=== PATIENT | male | born 1990 | race American Indian/Alaskan Native ===

== ENCOUNTER 2020-12-01 19:52 | Emergency (ER) | payer OTHER ==
[2020-12-01 20:38] VITALS: BP 148/91
[2020-12-01] MEDS ORDERED: KETOROLAC 60 MG/2 ML INJ IM ONE (20:59)
[2020-12-01] MEDS ORDERED: predniSONE 20 MG TAB PO ONE (20:59)
--- NOTE | 2020-12-01 21:32 | Cat Scan Report ---
CT HEAD WITHOUT CONTRAST INDICATION / CLINICAL INFORMATION: neck/head pain s/p direct blow. TECHNIQUE: All CT scans at this location are performed using CT dose reduction for ALARA by means of automated e xposure control. COMPARISON: None available. FINDINGS: HEMORRHAGE: None. EXTRA-AXIAL SPACES: Normal in size and morphology for the patient's age. VENTRICULAR SYSTEM: Normal in size and morphology for the patient's age. CEREBRAL PARENCHYMA: No significant abnormality. No acute territorial infarct. MIDLINE SHIFT OR HERNIATION: None. CEREBELLUM / BRAINSTEM: No significant abnormality. ORBITS: Normal as visualized. SOFT TISSUES of HEAD: No significant abnormality. CALVARIUM: No significant abnormality. PARANASAL SINUSES / MASTOID AIR CELLS: Polypoid mucosal thickening of the right sphenoid sinus. ADDITIONAL FINDINGS: None. IMPRESSION: 1. No acute intracranial abnormality. Signer Name: Oliver Guillaume MD Signed: 12/01/2020 9:28 PM Workstation Name: [id number]
--- NOTE | 2020-12-01 21:38 | Cat Scan Report ---
CT CERVICAL SPINE WITHOUT CONTRAST INDICATION / CLINICAL INFORMATION: neck/head pain s/p direct blow. TECHNIQUE: Axial CT images of the spine were obtained. Sagittal and coronal reformatted images were produced. Al l CT scans at this location are performed using CT dose reduction for ALARA by means of automated exp osure control. COMPARISON: None available. FINDINGS: Acute Fracture(s) or Subluxation: None. Spinal Degenerative Changes: No significant degenerative changes. Paraspinal soft tissues: No soft tissue swelling or other acute abnormalities. Additional Findings: No significant additional findings. IMPRESSION: 1. No acute findings. Signer Name: Oliver Guillaume MD Signed: 12/01/2020 9:33 PM Workstation Name: [id number]
--- NOTE | 2020-12-01 22:09 | Emergency Department Report ---
ED Neck Pain/Injury HPI - General Chief Complaint: Neck Pain/Injury Stated Complaint: PAIN IN SHOULDER/NECK/CHEST PAIN Time Seen by Provider: 12/01/20 20:57 Mode of arrival: Ambulatory Limitations: No Limitations - History of Present Illness Initial Comments: This is a 30-year-old male nontoxic, well nourished in appearance, no acute signs of distress presents to the ED with c/o of neck pain that started today. Patient stated that he was playing football and got tackled and started to have neck pain and radiates to his head. Patient denies any loss of consciousness. Denies any bladder or bowel instability. Patient denies any urinary symptoms. Denies any fever, chills, nausea, vomiting, headache, stiff neck, chest pain or shortness of breath. Patient denies any numbness or tingling. Patient stated pain is worse with movement and better with immobilization. Denies any visual changes. Patient denies any allergies or significant past medical history. MD Complaint: neck pain -: This afternoon Place: street/outdoors Severity: mild Severity scale (0 -10): 8 Quality: aching Consistency: intermittent Improves With: immobilization Worsens With: movement of neck Context: direct blow Associated Symptoms: headache. denies: fever, numbness, tingling, weakness, vertigo, difficulty walking, swollen glands, difficulty swallowing, nausea, vomiting - Related Data Previous Rx's Medication Instructions Recorded Last Taken Type Cyclobenzaprine [Flexeril] 10 mg PO QHS PRN #10 tablet 12/01/20 Unknown Rx Naproxen 500 mg PO Q12H PRN #12 tablet 12/01/20 Unknown Rx Allergies Allergy/AdvReac Type Severity Reaction Status Date / Time No Known Allergies Allergy Verified 12/01/20 20:29 ED Review of Systems ROS: Stated complaint: PAIN IN SHOULDER/NECK/CHEST PAIN Other details as noted in HPI Comment: All other systems reviewed and negative Constitutional: denies: chills, fever Eyes: denies: eye pain, eye discharge, vision change ENT: denies: ear pain, throat pain Respiratory: denies: cough, shortness of breath, wheezing Cardiovascular: denies: chest pain, palpitations Endocrine: no symptoms reported Gastrointestinal: denies: abdominal pain, nausea, diarrhea Genitourinary: denies: urgency, dysuria Musculoskeletal: denies: back pain, joint swelling, arthralgia Skin: denies: rash, lesions Neurological: headache. denies: weakness, paresthesias Psychiatric: denies: anxiety, depression Hematological/Lymphatic: denies: easy bleeding, easy bruising ED Past Medical Hx - Past Medical History Previous Medical History?: No - Surgical History Past Surgical History?: No - Social History Smoking Status: Never Smoker Substance Use Type: None - Medications Home Medications: Home Medications Medication Instructions Recorded Confirmed Last Taken Type Cyclobenzaprine [Flexeril] 10 mg PO QHS PRN #10 tablet 12/01/20 Unknown Rx Naproxen 500 mg PO Q12H PRN #12 tablet 12/01/20 Unknown Rx ED Physical Exam - General Limitations: No Limitations General appearance: alert, in no apparent distress - Head Head exam: Present: atraumatic, normocephalic - Eye Eye exam: Present: normal appearance, PERRL, EOMI - Neck Neck exam: Present: normal inspection, full ROM. Absent: tenderness, men ingismus, lymphadenopathy - Respiratory Respiratory exam: Present: normal lung sounds bilaterally. Absent: respiratory distress - Cardiovascular Cardiovascular Exam: Present: regular rate - Extremities Exam Extremities exam: Present: normal inspection, full ROM, normal capillary refill. Absent: tenderness, joint swelling - Back Exam Back exam: Present: normal inspection, full ROM, paraspinal tenderness (Cervical paraspinal). Absent: tenderness, CVA tenderness (R), CVA tenderness (L), muscle spasm, vertebral tenderness, rash noted - Neurological Exam Neurological exam: Present: alert, oriented X3, normal gait - Expanded Neurological Exam Expanded Patient oriented to: Present: person, place, time Cranial nerves: EOM's Intact: Normal, Facial Sensation: Normal Cerebellar function: Finger to Nose: Normal Upper motor neuron: Pronator Drift: Normal, Sensory Extinction: Normal Motor strength exam: RUE: 5, LUE: 5, RLE: 5, LLE: 5 Best Eye Response ([place]): (4) open spontaneously Best Motor Response ([place]): (6) obeys commands Best Verbal Response ([place]): (5) oriented [place] Total: 15 - Psychiatric Psychiatric exam: Present: normal affect, normal mood - Skin Skin exam: Present: warm, dry, intact, normal color. Absent: rash ED Course Vital Signs 12/01/20 12/01/20 20:26 21:31 Temperature 98.2 F Pulse Rate 103 H Respiratory 16 18 Rate Blood Pressure 148/91 O2 Sat by Pulse 100 Oximetry - Reevaluation(s) Reevaluation #1: 12/01/20 22:07 Patient is speaking in full sentences with no signs of distress noted. ED Medical Decision Making - Radiology Data CT of head/neck without contrast obtained and dictated by radiologist unremarkable. - Medical Decision Making This is a 30-year-old male that presents with upper back strain. Patient is stable was examined by me. Patient is notified of the CT head and neck without any questions noted by the patient. Patient received Toradol 60 mg IM and prednisone in the ED which stated that her symptoms has resolved and subsided. Patient is discharged with muscle relaxant and Motrin. Patient was instructed not to operate any machinery while taking muscle relaxant as they cause her drowsiness. Patient was referred to Follow-up with a primary care doctor in 3-5 days or if symptoms worsen and continue return to emergency room as soon as possible. At time of discharge, the patient does not seem toxic or ill in appearance. No acute signs of distress noted. Patient agrees to discharge treatment plan of care. No further questions noted by the patient. This chart is dictated with using [employer] Critical care attestation.: If time is entered above; I have spent that time in minutes in the direct care of this critically ill patient, excluding procedure time. ED Disposition Clinical Impression: Cervical muscle strain Qualifiers: Encounter type: initial encounter Qualified Code(s): S16.1XXA - Strain of muscle, fascia and tendon at neck level, initial encounter Headache Qualifiers: Headache type: unspecified Headache chronicity pattern: acute headache Intractability: not intractable Qualified Code(s): R51.9 - Headache, unspecified Disposition: DC-01 TO HOME OR SELFCARE Is pt being admited?: No Does the pt Need Aspirin: No Condition: Stable Instructions: Cervical Sprain, [id number], Cyclobenzaprine tablets Additional Instructions: Follow-up with your primary care doctor in 3-5 days or if symptoms worsen such as bladder or bowel stability, chest pain, short of breath, numbness or tingling sensation in extremities, headache, dizziness, visual changes, nausea vomiting, or abdominal pain, return back to emergency room as was possible. Take naproxen and Flexeril as prescribed. Do not operate heavy machinery while taking Flexeril due to sedation Prescriptions: Cyclobenzaprine [Flexeril] 10 mg PO QHS PRN #10 tablet PRN Reason: Muscle Spasm Naproxen 500 mg PO Q12H PRN #12 tablet PRN Reason: Pain , Severe (7-10) Referrals: PRIMARY CAREMD [Referring] - 3-5 Days JADE VILLASEÑOR MD [Staff Physician] - 3-5 Days Time of Disposition: 22:09
== END 2020-12-01 22:32 | disposition home or self-care (01) ==
LOC: ED 19:52
DX: S16.1XXA Strain of muscle, fascia and tendon at neck level, initial encounter (principal); Z79.899 Other long term (current) drug therapy; X58.XXXA Exposure to other specified factors, initial encounter; Y93.61 Activity, american tackle football; Y92.89 Other specified places as the place of occurrence of the external cause; Y99.8 Other external cause status
CPT/HCPCS: 70450; 72125; 96372; 99283; J1885; J7512

== ENCOUNTER 2020-12-28 19:37 | Emergency (ER) | payer OTHER ==
--- NOTE | 2020-12-28 19:43 | Emergency Department Report ---
Blank Doc - Documentation Documentation: 30-year-old [place] male with multiple complaining of lower quadrant abdominal pain associated with diarrhea and and occasional blood-tinged diarrhea of an unknown etiology pain is sharp and does radiate across his lower stomach when present. Reports no no dysuria no hematuria no fever, chills, sweats no chest pain or palp palpitations. This initial assessment/diagnostic orders/clinical plan/treatment(s) is/are subject to change based on patients health status, clinical progression and re- assessment by fellow clinical providers in the ED. Further treatment and workup at subsequent clinical providers discretion. Patient/guardian urged not to elope from the ED as their condition may be serious if not clinically assessed and managed. Initial orders include: Labs, urinalysis, CT We will obtain a CT scan due to the left lower quadrant pain with bloating and diarrhea to rule out causes such as diverticulitis
[2020-12-28 20:06] LABS: Bilirubin,Urine NEG (Negative); Blood,Urine NEG (Negative); Color,Urine Yellow (Yellow); Mucus,Urine FEW /HPF; RBC,Urine < 1.0 /HPF (0.0-6.0)
[2020-12-28 20:08] LABS: WBC,Urine < 1.0 /HPF (0.0-6.0)
[2020-12-28 20:17] LABS: Basophils # (Auto) 0.1 K/mm3 (0.0-0.1); Basophils % (Auto) 0.9 % (0.0-1.8); Eosinophils # (Auto) 0.1 K/mm3 (0.0-0.4); Eosinophils % (Auto) 1.3 % (0.0-4.3); Hematocrit 44.3 % (35.5-45.6); Hemoglobin 15.3 gm/dl (11.8-15.2); Lymphocytes # (Auto) 3.2 K/mm3 (1.2-5.4); Mean Corpuscular HGB Conc 35 % (32-34); Mean Corpuscular Volume 97 fl (84-94); Monocytes # (Auto) 0.5 K/mm3 (0.0-0.8); Monocytes % (Auto) 6.7 % (0.0-7.3); Platelet Count 211 K/mm3 (140-440); Red Blood Count 4.59 M/mm3 (3.65-5.03); Red Cell Distribution Width 13.2 % (13.2-15.2)
[2020-12-28 20:27] LABS: Alanine Aminotransferase 14 units/L (7-56); Albumin 4.5 g/dL (3.9-5); BUN/Creatinine Ratio 13; Blood Urea Nitrogen 12 mg/dL (9-20); Calcium 8.9 mg/dL (8.4-10.2); Hemolysis Index 12
[2020-12-28 20:28] LABS: Bilirubin,Direct < 0.2 mg/dL (0-0.2)
[2020-12-28] MEDS ORDERED: FAMOTIDINE 20 MG/2 ML INJ IV ONE (21:58)
[2020-12-28] MEDS ORDERED: MORPHINE 2 MG/1 ML INJ IV ONE (21:58)
[2020-12-28] MEDS ORDERED: ONDANSETRON 4 MG/2 ML INJ IV ONE (21:58)
--- NOTE | 2020-12-28 22:02 | Emergency Department Report ---
ED Abdominal Pain HPI - General Chief Complaint: Abdominal Pain Stated Complaint: ABD PAIN Time Seen by Provider: 12/28/20 21:52 Source: patient Mode of arrival: Ambulatory Limitations: No Limitations - History of Present Illness Initial Comments: 30-year-old male, no past medical history, presents to ED with left-sided abdominal pain x2 days. Patient reports associated nausea, no vomiting. He also reports some associated diarrhea. He denies fever. He denies ever having this pain previously. He denies any hematuria or dysuria. He reports some urinary frequency. Patient reports he has been taking a combination of Naprosyn, ibuprofen, and aspirin for a neck injury sustained while playing football that he has been having over the last month. Patient denies epigastric pain. MD Complaint: abdominal pain -: days(s) (2) Location: LUQ, LLQ Radiation: none Migration to: no migration Severity: moderate Quality: aching Consistency: constant Improves With: nothing Worsens With: nothing Associated Symptoms: nausea, diarrhea. denies: vomiting, fever, dysuria, hematuria - Related Data Previous Rx's Medication Instructions Recorded Last Taken Type Cyclobenzaprine [Flexeril] 10 mg PO QHS PRN #10 tablet 12/01/20 Unknown Rx Naproxen 500 mg PO Q12H PRN #12 tablet 12/01/20 Unknown Rx Dicyclomine [Bentyl] 20 mg PO QID PRN #20 tablet 12/28/20 Unknown Rx Ondansetron [Zofran Odt] 4 mg PO Q8HR PRN #20 tab.rapdis 12/28/20 Unknown Rx Pantoprazole [Protonix TAB] 20 mg PO QDAY #30 tablet. 12/28/20 Unknown Rx Allergies Allergy/AdvReac Type Severity Reaction Status Date / Time No Known Allergies Allergy Verified 12/01/20 20:29 ED Review of Systems ROS: Stated complaint: ABD PAIN Other details as noted in HPI Comment: All other systems reviewed and negative Constitutional: denies: chills, fever Gastrointestinal: abdominal pain, nausea, diarrhea. denies: vomiting Genitourinary: frequency. denies: dysuria, hematuria ED Past Medical Hx - Past Medical History Previous Medical History?: No - Surgical History Past Surgical History?: No - Social History Smoking Status: Current Every Day Smoker Substance Use Type: None - Medications Home Medications: Home Medications Medication Instructions Recorded Confirmed Last Taken Type Cyclobenzaprine [Flexeril] 10 mg PO QHS PRN #10 tablet 12/01/20 Unknown Rx Naproxen 500 mg PO Q12H PRN #12 tablet 12/01/20 Unknown Rx Dicyclomine [Bentyl] 20 mg PO QID PRN #20 tablet 12/28/20 Unknown Rx Ondansetron [Zofran Odt] 4 mg PO Q8HR PRN #20 tab.rapdis 12/28/20 Unknown Rx Pantoprazole [Protonix TAB] 20 mg PO QDAY #30 tablet. 12/28/20 Unknown Rx ED Physical Exam - General Limitations: No Limitations General appearance: alert, in no apparent distress - Head Head exam: Present: atraumatic, normocephalic - Eye Eye exam: Present: normal appearance, EOMI - ENT ENT exam: Present: mucous membranes moist - Neck Neck exam: Present: normal inspection - Respiratory Respiratory exam: Present: normal lung sounds bilaterally. Absent: respiratory distress - Cardiovascular Cardiovascular Exam: Present: regular rate, normal rhythm - GI/Abdominal GI/Abdominal exam: Present: soft, tenderness (Mild LUQ, LLQ tenderness; no epigastric tenderness). Absent: distended - Extremities Exam Extremities exam: Present: normal inspection - Neurological Exam Neurological exam: Present: alert, oriented X3 - Psychiatric Psychiatric exam: Present: normal affect, normal mood - Skin Skin exam: Present: warm, dry, intact, normal color ED Course Vital Signs 12/28/20 12/28/20 12/28/20 19:41 22:04 23:16 Temperature 97.8 F 98.2 F Pulse Rate 98 H 95 H Respiratory 18 16 16 Rate Blood Pressure 167/94 Blood Pressure 145/91 [Right] O2 Sat by Pulse 100 100 Oximetry ED Medical Decision Making - Lab Data Result diagrams: 12/28/20 19:56 12/28/20 19:56 - Radiology Data Radiology results: report reviewed, image reviewed - Medical Decision Making Labs are unremarkable. Vital signs are stable. Ultrasound is negative for any acute findings. Outpatient follow-up advised. Prescriptions given. Return precautions given. - Differential Diagnosis Pancreatitis, cholelithiasis, cholecystitis Critical care attestation.: If time is entered above; I have spent that time in minutes in the direct care of this critically ill patient, excluding procedure time. ED Disposition Clinical Impression: Abdominal pain Disposition: DC-01 TO HOME OR SELFCARE Is pt being admited?: No Condition: Stable Instructions: Gastritis, Adult, [id number], Abdominal Pain, Adult, [id number] Additional Instructions: Avoid use of NSAIDs (ibuprofen, naproxen, naprosyn, aspirin, advil). Prescriptions: Dicyclomine [Bentyl] 20 mg PO QID PRN #20 tablet PRN Reason: abdominal pain Pantoprazole [Protonix TAB] 20 mg PO QDAY #30 tablet. Ondansetron [Zofran Odt] 4 mg PO Q8HR PRN #20 tab.rapdis PRN Reason: Vomiting Referrals: SETH MARTINEZ MD [Primary Care Provider] - 3-5 Days [facility] [Provider Group] - as needed Time of Disposition: 23:22
--- NOTE | 2020-12-28 23:15 | Cat Scan Report ---
CT ABDOMEN AND PELVIS WITH CONTRAST INDICATION: Abdominal Pain. TECHNIQUE: Axial CT images were obtained through the abdomen and pelvis after 100 cc Omni [address] scans at this location are performed using CT dose reduction for ALARA by means of automated expos ure control. COMPARISON: None available. FINDINGS: LOWER CHEST: No significant abnormality. LIVER: No significant abnormality. GALLBLADDER: No significant abnormality. BILE DUCTS: No significant abnormality. PANCREAS: No significant abnormality. SPLEEN: No significant abnormality. ADRENALS: No significant abnormality. RIGHT KIDNEY and URETER: No significant abnormality. LEFT KIDNEY and URETER: No significant abnormality. STOMACH and SMALL BOWEL: No significant abnormality. COLON: No significant abnormality. APPENDIX: Normal. PERITONEUM: No free fluid. No free air. No fluid collection. LYMPH NODES: No significant adenopathy. AORTA and ARTERIES: No significant abnormality. IVC and VEINS: No significant abnormality. URINARY BLADDER: No significant abnormality. REPRODUCTIVE ORGANS: No significant abnormality. ADDITIONAL FINDINGS: None. SKELETAL SYSTEM: No significant abnormality. IMPRESSION: 1. No significant abnormality. Signer Name: Hipolito Lagunas MD Signed: 12/28/2020 11:10 PM Workstation Name: [id number]
[2020-12-28 23:18] VITALS: BP 145/91
== END 2020-12-28 23:33 | disposition home or self-care (01) ==
LOC: ED 19:37
DX: R10.9 Unspecified abdominal pain (principal); F17.200 Nicotine dependence, unspecified, uncomplicated; Z79.899 Other long term (current) drug therapy
CPT/HCPCS: 36415; 74177; 80048; 80076; 81001; 85025; 96374; 96375; 99284; J2270; J2405; Q9967